=== PATIENT | male | born 1990 | race African-American/Black ===

== ENCOUNTER 2020-07-01 11:10 | Emergency (ER) | payer BC ==
--- NOTE | 2020-07-01 12:17 | RAD ---
EXAM: 3 views of the right wrist HISTORY: Wrist pain after picking something up at work COMPARISON: None FINDINGS: 3 views of the right wrist shows no evidence of acute fracture or dislocation. No soft tiss ue swelling is seen. No degenerative changes are present. IMPRESSION: No evidence of acute osseous abnormality.
== END 2020-07-01 13:40 | disposition home or self-care (01) ==
LOC: ERS 11:10
DX: M25.531 Pain in right wrist (principal)
CPT/HCPCS: 29125